=== PATIENT | male | born 1945 | race Caucasian/White ===

== ENCOUNTER 2016-05-29 15:05 | Emergency (ER) | payer OTHER, MEDICARE ==
[~2016-05-29] VITALS: Ht 185.4 cm; Wt 104.3 kg
[2016-05-29 15:19] VITALS: BP 94/32; PULSE 73; RESP 12; TEMP 98.8; O2SAT 98
--- NOTE | 2016-05-29 15:19 | NUR ---
Placed in room 02 . Placed on bus driver/monitor, blood pressure machine and pulse oximeter. To gown for exam. Side rails up. Report given to Sherice.
--- NOTE | 2016-05-29 15:45 | NUR ---
ER at bedside examining patient.
--- NOTE | 2016-05-29 15:50 | NUR ---
Pt brought in by son in stable condition. Pt c/o dizziness and stated he "felt weird". Pt stated that he was driving and started not feeling well. Pt thinks that he might be having a stroke. Pt c/o sudden onset chest pain and sob. -diaphoresis. Placed pt on lead furnace operator. No acute distress noted at this time, will continue to monitor
[2016-05-29] MEDS ORDERED: NACL 0.9% 1,000 ML IV ONE (16:00)
[2016-05-29 16:11] LABS: BASOPHILS # (AUTO) 0.1 K/uL (0.0-0.2); BASOPHILS % (AUTO) 1.2 % (0.0-2.0); EOSINOPHILS # (AUTO) 0.2 K/uL (0.0-0.4); EOSINOPHILS % (AUTO) 3.1 % (0.0-4.0); HEMATOCRIT 36.7 % (36-54); LYMPHOCYTES # (AUTO) 0.9 K/uL (1.0-5.5); LYMPHOCYTES % (AUTO) 17.5 % (20.5-51.5); MEAN CORPUSCULAR HEMOGLOBIN 31 pg (27-31); MEAN CORPUSCULAR HGB CONC 36 % (32-36); MEAN CORPUSCULAR VOLUME 88 fL (79.0-98.0); MONOCYTES # (AUTO) 0.2 K/uL (0.0-1.0); NEUTROPHILS # (AUTO) 3.5 K/uL (1.8-7.7); NEUTROPHILS % (AUTO) 73.2 % (40.0-70.0); PLATELET COUNT (AUTO) 133 K/uL (130-430); RED BLOOD CELL COUNT(AUTO) 4.15 MIL/uL (4.2-6.2); RED CELL DISTRIBUTION WIDTH 13.1 % (9.0-15.0); WHITE BLOOD COUNT (AUTO) 4.9 K/uL (4.8-10.8)
[2016-05-29 16:24] LABS: ANION GAP 3 (5-15); CALCIUM 9.1 mg/dL (8.4-11.0); CHLORIDE 107 mmol/L (98-107); CREATININE 1.68 mg/dL (0.55-1.30); GLUCOSE 178 mg/dL (70-99); POTASSIUM 3.8 mmol/L (3.5-5.1); SODIUM SERUM 136 mmol/L (136-145); UREA NITROGEN, BLOOD 23 mg/dL (8-21)
[2016-05-29 16:29] LABS: ALANINE AMINOTRANSFERASE 25 U/L (12-78); ALBUMIN 3.7 g/dL (3.4-4.8); ASPARTATE AMINOTRANSFERASE 21 U/L (10-37); TOTAL BILIRUBIN 0.6 mg/dL (0.0-1.0); TOTAL PROTEIN, SERUM 6.4 g/dL (6.4-8.3)
--- NOTE | 2016-05-29 16:57 | NUR ---
SPOKE TO PT. ABOUT HIS LAB VALUES, DR. MAZARIEGOS ATR BEDSIDE SPEAKING TO PT. ABOUT THE PLAN OF CARE, PT. STABLE STATES NO COMPLAINTS, VERBALIZED COMFORT
[2016-05-29 17:20] VITALS: BP 136/58; PULSE 65; RESP 14; TEMP 98.2; O2SAT 99
--- NOTE | 2016-05-29 17:20 | NUR ---
Patient given written and verbal discharge instructions and verbalizes understanding. ER MD dR. MAZARIEGOS discussed with patient the results and treatment provided. Patient in stable condition. ID arm band removed. IV catheter removed intact and dressing applied, no active bleeding. nO Rx given. Patient educated on pain management and to follow up with PMD. Pain Scale 0/10 Opportunity for questions provided and answered.
== END 2016-05-29 17:20 | disposition home or self-care (01) ==
LOC: SED 15:05
DX: R55 Syncope and collapse (principal); E11.9 Type 2 diabetes mellitus without complications; I10 Essential (primary) hypertension
CPT/HCPCS: 36415; 70450; 71010; 80053; 84484; 85025; 93005; 96360; 99285; J7030

== ENCOUNTER 2017-09-01 16:46 | Emergency (ER) | payer OTHER, MEDICARE ==
[~2017-09-01] VITALS: Ht 182.9 cm; Wt 105.7 kg
[2017-09-01 17:06] VITALS: BP_SYST 157
[2017-09-01 18:01] LABS: ANION GAP 8 (5-15); CALCIUM 9.1 mg/dL (8.4-11.0); CHLORIDE 102 mmol/L (98-107); GLUCOSE 91 mg/dL (70-99); POTASSIUM 4.3 mmol/L (3.5-5.1); SODIUM SERUM 137 mmol/L (136-145); UREA NITROGEN, BLOOD 25 mg/dL (8-21)
[2017-09-01 18:06] LABS: ALANINE AMINOTRANSFERASE 23 U/L (12-78); ALBUMIN 3.7 g/dL (3.4-4.8); ASPARTATE AMINOTRANSFERASE 21 U/L (10-37); TOTAL BILIRUBIN 0.6 mg/dL (0.0-1.0)
[2017-09-01 18:08] LABS: BASOPHILS # (AUTO) 0.1 K/uL (0.0-0.2); BASOPHILS % (AUTO) 1.4 % (0.0-2.0); EOSINOPHILS # (AUTO) 0.1 K/uL (0.0-0.4); EOSINOPHILS % (AUTO) 1.9 % (0.0-4.0); HEMATOCRIT 41.5 % (36-54); HEMOGLOBIN 13.9 g/dL (14.0-18.0); LYMPHOCYTES # (AUTO) 1.2 K/uL (1.0-5.5); LYMPHOCYTES % (AUTO) 25.2 % (20.5-51.5); MEAN CORPUSCULAR HEMOGLOBIN 32 pg (27-31); MEAN CORPUSCULAR HGB CONC 34 % (32-36); MEAN CORPUSCULAR VOLUME 95 fL (79.0-98.0); MONOCYTES # (AUTO) 0.3 K/uL (0.0-1.0); MONOCYTES % (AUTO) 6.3 % (1.7-9.3); NEUTROPHILS % (AUTO) 65.2 % (40.0-70.0); PLATELET COUNT (AUTO) 156 K/uL (130-430); RED BLOOD CELL COUNT(AUTO) 4.37 MIL/uL (4.2-6.2); RED CELL DISTRIBUTION WIDTH 12.5 % (9.0-15.0); WHITE BLOOD COUNT (AUTO) 4.7 K/uL (4.8-10.8)
[2017-09-01 18:27] LABS: PROTHROMBIN TIME 10.4 SECS (9.5-12.5)
[2017-09-01 18:50] VITALS: BP_SYST 132
== END 2017-09-01 18:50 | disposition home or self-care (01) ==
LOC: SED 16:46
DX: I10 Essential (primary) hypertension (principal); E78.5 Hyperlipidemia, unspecified; F32.9 Major depressive disorder, single episode, unspecified; E11.9 Type 2 diabetes mellitus without complications; R79.1 Abnormal coagulation profile
CPT/HCPCS: 36415; 71045; 80053; 83880; 84484; 85025; 85610-TC; 85730-TC; 93005; 99285

== ENCOUNTER 2020-04-15 07:03 | Emergency (ER) | payer OTHER, MEDICARE ==
[~2020-04-15] VITALS: Ht 185.4 cm; Wt 95.3 kg
[2020-04-15 07:19] VITALS: BP_SYST 128
[2020-04-15] MEDS ORDERED: ACETAMINOPHEN 325 MG TABLET PO ONE (07:30)
[2020-04-15] MEDS ORDERED: DIPH-TET-PERTUS Vaccine 0.5 ML VIAL (ADACEL) I.M. ONE (07:45)
[2020-04-15] MEDS ORDERED: LIDOCAINE 1% 10 MG/ML, 20 ML MDV INJ ONE (07:45)
[2020-04-15] MEDS ORDERED: BACITRACIN 1 GM OINT TP ONE (07:45)
[2020-04-15 08:21] VITALS: BP_SYST 128
== END 2020-04-15 08:21 | disposition home or self-care (01) ==
LOC: SED 07:03
DX: L03.011 Cellulitis of right finger (principal); I10 Essential (primary) hypertension; E11.9 Type 2 diabetes mellitus without complications
CPT/HCPCS: 10060; 73130; 90471; 90715; 99283; J2001

== ENCOUNTER 2020-07-02 09:59 | Emergency (ER) | payer OTHER, MEDICARE ==
[~2020-07-02] VITALS: Ht 185.4 cm; Wt 103.4 kg
[2020-07-02 10:03] VITALS: BP_SYST 134
--- NOTE | 2020-07-02 10:04 | NUR ---
Patient to ER bed 06 to gown for evaluation. Side rails up.
--- NOTE | 2020-07-02 10:10 | NUR ---
pt. drove self here from home with c/o waking up this morning and feeling dizzy x 1 hour, at this time pt. denies feeling dizzy but states somewhat fatigued. denies any pain or discomfort.
[2020-07-02] MEDS ORDERED: NACL 0.9% 1,000 ML IV ONE (10:15)
--- NOTE | 2020-07-02 10:15 | NUR ---
ER at bedside examining patient.
[2020-07-02 10:31] LABS: BASOPHILS % (AUTO) 0.6 % (0.0-2.0); EOSINOPHILS # (AUTO) 0.1 K/uL (0.0-0.4); EOSINOPHILS % (AUTO) 1.4 % (0.0-4.0); HEMATOCRIT 41.6 % (36-54); HEMOGLOBIN 14.2 g/dL (14.0-18.0); LYMPHOCYTES # (AUTO) 1.1 K/uL (1.0-5.5); LYMPHOCYTES % (AUTO) 18.8 % (20.5-51.5); MEAN CORPUSCULAR HEMOGLOBIN 31 pg (27-31); MEAN CORPUSCULAR HGB CONC 34 % (32-36); MEAN CORPUSCULAR VOLUME 91 fL (79.0-98.0); MONOCYTES # (AUTO) 0.3 K/uL (0.0-1.0); NEUTROPHILS # (AUTO) 4.2 K/uL (1.8-7.7); NEUTROPHILS % (AUTO) 73.2 % (40.0-70.0); PLATELET COUNT (AUTO) 120 K/uL (130-430); RED BLOOD CELL COUNT(AUTO) 4.58 MIL/uL (4.2-6.2); WHITE BLOOD COUNT (AUTO) 5.7 K/uL (4.8-10.8)
[2020-07-02 10:44] LABS: ANION GAP 7 (5-15); CALCIUM 8.7 mg/dL (8.4-11.0); CHLORIDE 108 mmol/L (98-107); CREATININE 1.47 mg/dL (0.55-1.30); GLUCOSE 111 mg/dL (70-99); POTASSIUM 3.8 mmol/L (3.5-5.1); SODIUM SERUM 143 mmol/L (136-145); UREA NITROGEN, BLOOD 22 mg/dL (8-21)
[2020-07-02 10:58] LABS: ALANINE AMINOTRANSFERASE 18 U/L (12-78); ALBUMIN 3.5 g/dL (3.4-4.8); ASPARTATE AMINOTRANSFERASE 25 U/L (10-37); PHOSPHORUS 2.7 mg/dL (2.7-4.5)
[2020-07-02 11:42] LABS: BILIRUBIN,URINE NEGATIVE (NEGATIVE); BLOOD, URINE 2+ (NEGATIVE); CLARITY/URINE CLEAR (CLEAR); COLOR,URINE YELLOW (YELLOW); GLUCOSE,URINE NEGATIVE (NEGATIVE); KETONES,URINE NEGATIVE (NEGATIVE); LEUKOCYTE ESTERASE ,URINE NEGATIVE (NEGATIVE); NITRITE, URINE NEGATIVE (NEGATIVE); PROTEIN URINE NEGATIVE (NEGATIVE); UROBILINOGEN,URINE 0.2 (0.2-1.0)
[2020-07-02 11:55] LABS: BACTERIA,URINE RARE /HPF (None Seen); MUCUS,URINE 1+ /LPF (None Seen); WBC,URINE 0-3 /HPF (0-3)
--- NOTE | 2020-07-02 12:16 | NUR ---
# 20 gauge angiocath placed to L hand. Use of asceptic technique. Opsite placed over site. Blood return noted. Flushed with 10 cc of normal saline. No evidence of infiltration noted. Patient tolerated well.
--- NOTE | 2020-07-02 12:20 | NUR ---
Dr Ayala evaluating patient at bedside
[2020-07-02 13:13] VITALS: BP_SYST 134
--- NOTE | 2020-07-02 13:14 | NUR ---
Patient given written and verbal discharge instructions and verbalizes understanding. ER MD discussed with patient the results and treatment provided. Patient in stable condition. ID arm band removed. No Rx given. Patient educated on pain management and to follow up with PMD. Pain Scale 0/10 . Opportunity for questions provided and answered. Medication side effect fact sheet provided.
== END 2020-07-02 13:14 | disposition home or self-care (01) ==
LOC: SED 09:59
DX: R55 Syncope and collapse (principal); E87.8 Other disorders of electrolyte and fluid balance, not elsewhere classified; E86.0 Dehydration; I10 Essential (primary) hypertension; E11.9 Type 2 diabetes mellitus without complications; Z20.822 Contact with and (suspected) exposure to COVID-19
CPT/HCPCS: 36415; 80053; 81000; 83735; 84100; 84484; 85025; 87426; 93005; 96360; 99284; J7030

== ENCOUNTER 2021-04-18 14:01 | Emergency (ER) | payer OTHER, MEDICARE ==
[~2021-04-18] VITALS: Ht 185.4 cm; Wt 102.1 kg
[2021-04-18 14:01] VITALS: BP_SYST 146
--- NOTE | 2021-04-18 14:02 | NUR ---
BROUGHT BACK TO BED #5 AND TRIAGED. REPORT GIVEN TO PREMA
--- NOTE | 2021-04-18 14:07 | NUR ---
Patient to ER bed 05 to gown for evaluation. Side rails up.
--- NOTE | 2021-04-18 14:09 | NUR ---
PT COMES WITH C/O RECTAL PAIN AND CONSTIPATION FOR 2 DAYS. DENIES TAKING ANY NARCOTICS. DENIES ABDOMINAL PAIN, NO FEVERS. ABD ROUND/SOFT, NT. DENIES BLOOD IN STOOL.
--- NOTE | 2021-04-18 14:33 | NUR ---
DR PEACOCK IN ROOM FOR MANUAL DISIMPACTION.
[2021-04-18] MEDS ORDERED: SODIUM PHOSPHATE,MONO-DIBASIC 133 ML ENEMA RC ONE (14:45)
--- NOTE | 2021-04-18 14:53 | NUR ---
FLEET ENEMA GIVEN , TOLEATED WELL.
[2021-04-18] MEDS ORDERED: MAGNESIUM CITRATE 300 ML ORAL SOLUTION PO ONE (15:45)
[2021-04-18] MEDS ORDERED: DOCU-144 PO (15:52)
--- NOTE | 2021-04-18 15:52 | NUR ---
PT UP TO BATHROOM, DARK BROWN FLUID NOTED ON BEDSHEETS.
--- NOTE | 2021-04-18 15:59 | NUR ---
PT REPORT FEELING RELIEVED AFTER MED GIVEN, DR HOOK UPDATED. PT WILL BE DISCHARGED.
--- NOTE | 2021-04-18 16:04 | NUR ---
Patient given written and verbal discharge instructions and verbalizes understanding. ER MD discussed with patient the results and treatment provided. Patient in stable condition. ID arm band removed. Rx of DOCUSATE SODIUM given. Patient educated on pain management and to follow up with PMD. Pain Scale . Opportunity for questions provided and answered. Medication side effect fact sheet provided.
[2021-04-18 16:05] VITALS: BP_SYST 133
== END 2021-04-18 16:04 | disposition home or self-care (01) ==
LOC: SED 14:01
DX: K59.00 Constipation, unspecified (principal); I10 Essential (primary) hypertension; E11.9 Type 2 diabetes mellitus without complications; I48.91 Unspecified atrial fibrillation; Z79.899 Other long term (current) drug therapy
CPT/HCPCS: 99284